=== PATIENT | male | born 1955 | race Caucasian/White ===

== ENCOUNTER 2019-04-09 08:14 | Emergency (ER) | payer BC ==
--- NOTE | 2019-04-09 08:25 | UC ---
Lower Extremity/Ankle HPI - HPI Summary HPI Summary: 63 yo male presents with LEFT ankle injury. He tells me that 2 days ago he was jumping on a log to break it in half. The log broke and he landed forcefully on his left foot. Had immediate pain in the left ankle. Since that time has had increased swelling and pain with ambulation. He has been using crutches, icing, and elevating with little improvement. Denies numbness or tingling - History of Current Complaint Stated Complaint: ANKLE INJURY Time Seen by Provider: 04/09/19 08:22 Hx Obtained From: Patient Onset/Duration: Sudden Onset Severity Initially: Moderate Severity Currently: Moderate Pain Intensity: 5 Pain Scale Used: 0-10 Numeric Aggravating Factor(s): Standing, Ambulation Able to Bear Weight: Yes - Allergies/Home Medications Allergies/Adverse Reactions: Allergies Allergy/AdvReac Type Severity Reaction Status Date / Time mumps vaccine,live Allergy Severe Anaphylatic Verified 04/09/19 08:29 Shock Home Medications: Home Medications busPIRone TAB* [Buspar TAB*] 5 mg PO BID 04/09/19 [History Confirmed 04/09/19] lamoTRIgine [Lamotrigine] 150 mg PO DAILY WITH MEAL 04/09/19 [History Confirmed 04/09/19] PMH/Surg Hx/FS Hx/Imm Hx - Additional Past Medical History Additional PMH: Seizures Endocrine History: Dyslipidemia Psychological History: Anxiety - Surgical History Surgical History: Yes Surgery Procedure, Year, and Place: rotator cuff right X2 - Family History Known Family History: Positive: Non-Contributory - Social History Occupation: Employed Full-time Lives: With Family Alcohol Use: Daily Alcohol Amount: 2 beers/day Substance Use Type: Marijuana Substance Use Comment - Amount & Last Used: states not recent Smoking Status (MU): Never Smoked Tobacco Have You Smoked in the Last Year: No - Immunization History Most Recent Influenza Vaccination: fall 2014 Most Recent Tetanus Shot: unknown Most Recent Pneumonia Vaccination: none Review of Systems All Other Systems Reviewed And Are Negative: No Constitutional: Positive: Negative Skin: Positive: Negative Respiratory: Positive: Negative Cardiovascular: Positive: Negative Neurovascular: Positive: Negative Musculoskeletal: Positive: Other: - Ankle injury Neurological: Positive: Negative Psychological: Positive: Negative Physical Exam - Summary Physical Exam Summary: GENERAL: NAD. WDWN. No pain distress. SKIN: No rashes, sores, lesions, or open wounds. CHEST: No accessory muscle use. Breathing comfortably and in no distress. CV: Pulses intact PT and DP. Cap refill <2seconds MSK: LEFT ANKLE: Moderate edema about ankle joint. Mild TTP about navicular bone. FROM, but pain with dorsiflexion. Strength 5/5. Negative talar tilt. No increased laxity. Negative [place] test. NEURO: Alert. Sensations intact and symmetric B/L LEs PSYCH: Age appropriate behavior. Triage Information Reviewed: Yes Vital Signs: Vital Signs: Temp Pulse Resp BP Pulse Ox 97.4 F 60 18 121/77 99 04/09/19 08:21 04/09/19 08:21 04/09/19 08:21 04/09/19 08:21 04/09/19 08:21 Vital Signs Reviewed: Yes Diagnostics - Radiology Ankle XR Radiology Interpretation Completed By: Radiologist Summary of Radiographic Findings: IMPRESSION: 1. A 3 mm ossific structure is seen just distal to the tip of the medial malleolus. Correlate with point tenderness. 2. Medial/lateral soft tissue swelling. Lower Extremity Course/Dx - Course Course Of Treatment: XR as above. Discussed results with pt. Given injury and exam today - will treat as fracture. Pt placed in CAM boot. He has crutches at home that he will use prn. Advised to RICE and f/u with Ortho within 1 week - Differential Dx/Diagnosis Provider Diagnosis: Nondisplaced fracture of navicular [scaphoid] of left foot, initial encounter for closed fracture Discharge ED - Sign-Out/Discharge Documenting (check all that apply): Patient Departure All imaging exams completed and their final reports reviewed: Yes - Discharge Plan Condition: Stable Disposition: HOME Patient Education Materials: Swollen Joint (ED) Referrals: Abraham Jensen MD [Primary Care Provider] - Chris Cordova MD [Medical Doctor] - 1 Week Additional Instructions: If you develop a fever, shortness of breath, chest pain, new or worsening symptoms - please call your PCP or go to the ED immediately. 1) Rest, Ice, and elevate your ankle 2) Use the CAM boot and crutches as much as possible 3) I recommend that you follow up with Orthopedics within 1 week if symptoms do not improve - Billing Disposition and Condition Condition: STABLE Disposition: Home
[2019-04-09 08:28] VITALS: BP 121/77
== END 2019-04-09 09:17 | disposition home or self-care (01) ==
LOC: UCEAST 08:14
DX: S92.255A Nondisplaced fracture of navicular [scaphoid] of left foot, initial encounter for closed fracture (principal); F41.9 Anxiety disorder, unspecified; Z88.7 Allergy status to serum and vaccine; Z79.899 Other long term (current) drug therapy; X58.XXXA Exposure to other specified factors, initial encounter; Y93.39 Activity, other involving climbing, rappelling and jumping off; Y92.9 Unspecified place or not applicable
CPT/HCPCS: 99212; G0463